=== PATIENT | male | born 1980 | race Two or more races ===

== ENCOUNTER 2018-03-22 07:56 | Emergency (ER) | payer SELFPAY ==
[~2018-03-22] VITALS: Ht 175.3 cm; Wt 76.7 kg
[2018-03-22 08:02] VITALS: BP 134/79
[2018-03-22] MEDS ORDERED: KETOROLAC TROMETHAMINE INJ 60 MG/2 ML VIAL IM ONE (08:30)
[2018-03-22] MEDS ORDERED: ONDANSETRON 4 MG TAB.RAPDIS SL ONE (08:30)
[2018-03-22] MEDS ORDERED: ONDANSETRON 4 MG TAB.RAPDIS ONE (08:32)
[2018-03-22] MEDS ORDERED: KETOROLAC TROMETHAMINE INJ 30 MG/ML VIAL ONE (08:32)
[2018-03-22] MEDS ORDERED: IBUPROFEN 600 MG TABLET PO ONE ×2 (09:00→09:20)
== END 2018-03-22 09:25 | disposition home or self-care (01) ==
LOC: ER 07:59
DX: S00.03XA Contusion of scalp, initial encounter (principal); S20.319A Abrasion of unspecified front wall of thorax, initial encounter; S00.81XA Abrasion of other part of head, initial encounter; V49.49XA Driver injured in collision with other motor vehicles in traffic accident, initial encounter; Y93.89 Activity, other specified; Y92.413 State road as the place of occurrence of the external cause; Y99.8 Other external cause status
CPT/HCPCS: 70450; 71045; 99284; A4606; Q0162; J1885